=== PATIENT | female | born 1975 | race Caucasian/White ===

== ENCOUNTER 2017-09-16 16:28 | Emergency (ER) | payer SELFPAY ==
[2017-09-16] MEDS ORDERED: Sodium Chloride 0.9% 1,000 ML IV SCH ×2 (17:30→18:30)
--- NOTE | 2017-09-16 17:45 | EDM.PDOC ---
<Parvin Archibald - Last Filed: 09/16/17 17:39> ED HPI GENERAL MEDICAL PROBLEM - General Chief Complaint: Neuro Symptoms/Deficits Stated Complaint: SEIZURE ON Time Seen by Provider: 09/16/17 17:39 Source of Information: Reports: Patient, Family History Limitations: Reports: No Limitations - History of Present Illness INITIAL COMMENTS - FREE TEXT/NARRATIVE: Pt had a very extended seizure on wednesday and she is not recovering from this seizure. Her appetite is down. She is not drinking fluids. She can,t focus. Onset: Other (pt had the seizure on wednesday. ) Duration: Hour(s):, Other (pt arrived with fatique. She has pressure in the head. ) Location: Reports: Head Quality: Reports: Ache Severity: Mild Associated Symptoms: Reports: Loss of Appetite, Malaise, Other (having trouble thinking. 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 Frozen section Neurological History: Reports: Brain Injury, Migraines, Seizure Oncologic (Cancer) History: Reports: Ovarian - Infectious Disease History Infectious Disease History: Reports: Chicken Pox - Past Surgical History HEENT Surgical History: Reports: Myringotomy w Tube(s) Social & Family History - Tobacco Use Smoking Status *Q: Current Every Day Smoker Years of Tobacco use: 34 Packs/Tins Daily: 1 Used Tobacco, but Quit: No Second Hand Smoke Exposure: Yes - Caffeine Use Caffeine Use: Reports: Soda - Alcohol Use Days Per Week of Alcohol Use: 0 - Recreational Drug Use Recreational Drug Use: No ED ROS GENERAL - Review of Systems Review Of Systems: See Below Constitutional: Reports: No Symptoms HEENT: Reports: No Symptoms Respiratory: Reports: No Symptoms Cardiovascular: Reports: No Symptoms Endocrine: Reports: No Symptoms GI/Abdominal: Reports: Other (pt is not eating or drinking well. ) : Reports: No Symptoms Musculoskeletal: Reports: No Symptoms Skin: Reports: No Symptoms ED EXAM, NEURO - Physical Exam Exam: See Below Text/Narrative:: pt does look fatiqued. and she feels that she can,t recover from her last extended seizure. Exam Limited By: No Limitations General Appearance: Alert, Mild Distress, Other (pupils equal and reactive. ) Ears: Normal TMs Nose: Normal Inspection Throat/Mouth: Normal Inspection Head Exam: Atraumatic Neck: Normal Inspection Respiratory/Chest: No Respiratory Distress Cardiovascular: Regular Rate, Rhythm GI/Abdominal: Soft, Non-Tender (Female) Exam: Deferred Rectal (Female) Exam: Deferred Neurological: Alert, Oriented x 3 Back Exam: Normal Inspection Extremities: Normal Inspection Psychiatric: Anxious Course - Vital Signs Last Recorded V/S: Last Vital Signs Temp 96.8 F 09/16/17 18:59 Pulse 76 09/16/17 18:59 Resp 16 09/16/17 18:59 BP 116/69 09/16/17 18:59 Pulse Ox 99 09/16/17 18:59 - Orders/Labs/Meds Orders: Active Orders 24 hr Category Date Time Status Head wo Cont [CT] Stat Exams 09/16/17 17:36 Taken Sodium Chloride 0.9% [Normal Saline] 1,000 ml Med 09/16/17 17:30 Active IV ASDIRECTED Medication Orders Sodium Chloride (Normal Saline) 1,000 mls @ 999 mls/hr IV ASDIRECTED ELISEO Last Admin: 09/16/17 18:02 Dose: 999 mls/hr Labs: Laboratory Tests 09/16/17 09/16/17 09/16/17 Range/Units 17:24 17:24 17:24 WBC 14.2 H (4.5-11.0) K/uL RBC 4.29 (3.30-5.50) M/uL Hgb 13.4 (12.0-15.0) g/dL Hct 39.9 (36.0-48.0) % MCV 93 (80-98) fL MCH 31 (27-31) pg MCHC 34 (32-36) % Plt Count 264 (150-400) K/uL Neut % (Auto) 61 (36-66) % Lymph % (Auto) 25 (24-44) % [place] % (Auto) 8 H (2-6) % Eos % (Auto) 6 H (2-4) % Baso % (Auto) 0 (0-1) % Sodium 144 (140-148) mmol/L Potassium 4.3 (3.6-5.2) mmol/L Chloride 110 H (100-108) mmol/L Carbon Dioxide 27 (21-32) mmol/L Anion Gap 11.3 (5.0-14.0) mmol/L BUN 17 (7-18) mg/dL Creatinine 0.8 (0.6-1.0) mg/dL Est Cr Clr Drug Dosing 84.88 mL/min Estimated GFR (MDRD) > 60 (>60) Glucose 86 (74-106) mg/dL Calcium 8.5 (8.5-10.1) mg/dL Total Bilirubin 0.2 (0.2-1.0) mg/dL AST 19 (15-37) U/L ALT 31 (12-78) U/L Alkaline Phosphatase 76 (46-116) U/L Total Protein 6.6 (6.4-8.2) g/dL Albumin 3.1 L (3.4-5.0) g/dL Globulin 3.5 (2.3-3.5) g/dL Albumin/Globulin Ratio 0.9 L (1.2-2.2) Urine Color Urine Appearance Urine pH (4.5-8.0) Ur Specific [place] (1.008-1.030) Urine Protein (NEGATIVE) mg/dL Urine Glucose (UA) (NEGATIVE) mg/dL Urine Ketones (NEGATIVE) mg/dL Urine Occult Blood (NEGATIVE) Urine Nitrite (NEGATIVE) Urine Bilirubin (NEGATIVE) Urine Urobilinogen (NORMAL) mg/dL Ur Leukocyte Esterase (NEGATIVE) Urine RBC (0-5) Urine WBC (0-5) Ur Epithelial Cells Amorphous Sediment Urine Bacteria Urine Mucus Phenytoin 9.6 L (10.0-20.0) ug/mL Valproic Acid 48.9 L (50.0-100.0) ug/mL 09/16/17 Range/Units 17:43 WBC (4.5-11.0) K/uL RBC (3.30-5.50) M/uL Hgb (12.0-15.0) g/dL Hct (36.0-48.0) % MCV (80-98) fL MCH (27-31) pg MCHC (32-36) % Plt Count (150-400) K/uL Neut % (Auto) (36-66) % Lymph % (Auto) (24-44) % [place] % (Auto) (2-6) % Eos % (Auto) (2-4) % Baso % (Auto) (0-1) % Sodium (140-148) mmol/L Potassium (3.6-5.2) mmol/L Chloride (100-108) mmol/L Carbon Dioxide (21-32) mmol/L Anion Gap (5.0-14.0) mmol/L BUN (7-18) mg/dL Creatinine (0.6-1.0) mg/dL Est Cr Clr Drug Dosing mL/min Estimated GFR (MDRD) (>60) Glucose (74-106) mg/dL Calcium (8.5-10.1) mg/dL Total Bilirubin (0.2-1.0) mg/dL AST (15-37) U/L ALT (12-78) U/L Alkaline Phosphatase (46-116) U/L Total Protein (6.4-8.2) g/dL Albumin (3.4-5.0) g/dL Globulin (2.3-3.5) g/dL Albumin/Globulin Ratio (1.2-2.2) Urine Color Yellow Urine Appearance Slightly cloudy Urine pH 6.0 (4.5-8.0) Ur Specific [place] 1.020 (1.008-1.030) Urine Protein Negative (NEGATIVE) mg/dL Urine Glucose (UA) Normal (NEGATIVE) mg/dL Urine Ketones Negative (NEGATIVE) mg/dL Urine Occult Blood Negative (NEGATIVE) Urine Nitrite Negative (NEGATIVE) Urine Bilirubin Negative (NEGATIVE) Urine Urobilinogen 1 (NORMAL) mg/dL Ur Leukocyte Esterase Moderate (NEGATIVE) Urine RBC 0-5 (0-5) Urine WBC 0-5 (0-5) Ur Epithelial Cells Many Amorphous Sediment Not seen Urine Bacteria Rare Urine Mucus Not seen Phenytoin (10.0-20.0) ug/mL Valproic Acid (50.0-100.0) ug/mL Meds: Medications Generic Name Dose Route Start Last Admin Trade Name Freq PRN Reason Stop Dose Admin Sodium Chloride 1,000 mls @ 999 mls/hr 09/16/17 17:30 09/16/17 18:02 Normal Saline IV 999 mls/hr ASDIRECTED ELISEO Administration Discontinued Medications Generic Name Dose Route Start Last Admin Trade Name Arpita PRN Reason Stop Dose Admin Sodium Chloride 1,000 mls @ 999 mls/hr 09/16/17 18:30 Normal Saline IV ASDIRECTED ELISEO Departure - Departure Disposition: Home, Self-Care 01 Clinical Impression: Seizure - Discharge Information Referrals: Kurt Long MD [Primary Care Provider] - Forms: ED Department Discharge Additional Instructions: Recommend taking 4 tablets of any: This evening from your new pill bottle then 4 tablets in the morning followed by 3 tablets in the evening tomorrow. Recommend continuing this regimen until following up with Dr. oLng on Wednesday at which time he will recheck your levels, call return to the emergency department worsening of symptoms <OfficerFarooq - Last Filed: 09/16/17 19:18> Departure - Departure Time of Disposition: 19:17 Condition: Good - Assessment/Plan Plan: Assessment Acuity = acute Site and laterality = seizure complicated patient with known seizure disorder Etiology = probably related to recent change in medication Manifestations = none Location of injury = Home Lab values = WBC elevated 14.1 consistent leukocytosis, phenytoin level 9.6 subtherapeutic valproic acid level 48.9 also subtherapeutic Plan Did discuss options she does have 2 pill bottles 1 old medication of which she was stable on and in the new medication which she is recently started she plan is to increase her phenytoin level from the new pill bottle she is going to go for tablets tonight then 4 tablets in the morning 3 tablets in the evening and she'll continue this regimen until she can follow-up on Wednesday with her primary care provider at which time she'll have a recheck of levels call return to the emergency department worsening of symptoms This note was dictated using [employer] voice recognition software please call with any questions on syntax or esperanza.
== END 2017-09-16 19:33 | disposition home or self-care (01) ==
LOC: JP.ED 16:28
DX: R56.9 Unspecified convulsions (principal); F17.210 Nicotine dependence, cigarettes, uncomplicated; Z79.899 Other long term (current) drug therapy
CPT/HCPCS: 36415; 70450; 80053; 80164; 80185; 81001; 85025; 96360; 99284; J7040

== ENCOUNTER 2017-12-31 13:41 | Emergency (ER) | payer SELFPAY ==
--- NOTE | 2017-12-31 14:22 | EDM.PDOC ---
ED HPI GENERAL MEDICAL PROBLEM - General Chief Complaint: Gastrointestinal Problem Stated Complaint: SEVERE STOMACH PAIN Time Seen by Provider: 12/31/17 14:10 Source of Information: Reports: Patient History Limitations: Reports: No Limitations - History of Present Illness INITIAL COMMENTS - FREE TEXT/NARRATIVE: Cristela is an otherwise healthy 42 year old female who presents to the ED today with c/o abdominal pain that started while she was at work this morning. Patient also complains of lower pelvic cramping but attributes this to her menstrual cycle which should start tomorrow. Patient reports her abdominal pain was relived with defecation. Patient is concerned as she was on the toilet for nearly an hour passing a large amount of formed stool followed loose stool and then noted BRB in toilet. Patient has had no bleeding since. She denies any history of abdominal problems or rectal bleeding in the past. Patient denies any fever/nausea/vomiting. 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 Frozen section Neurological History: Reports: Brain Injury, Migraines, Seizure Oncologic (Cancer) History: Reports: Ovarian - Infectious Disease History Infectious Disease History: Reports: Chicken Pox - Past Surgical History HEENT Surgical History: Reports: Myringotomy w Tube(s) Social & Family History - Tobacco Use Smoking Status *Q: Current Every Day Smoker Years of Tobacco use: 33 Packs/Tins Daily: 1 Second Hand Smoke Exposure: Yes - Caffeine Use Caffeine Use: Reports: None - Recreational Drug Use Recreational Drug Use: No ED ROS GENERAL - Review of Systems Review Of Systems: ROS reveals no pertinent complaints other than HPI. ED EXAM, GI/ABD - Physical Exam Exam: See Below Exam Limited By: No Limitations General Appearance: Alert, WD/WN, No Apparent Distress Throat/Mouth: Normal Oropharynx Head: Atraumatic Respiratory/Chest: No Respiratory Distress, Lungs Clear, Normal Breath Sounds Cardiovascular: Regular Rate, Rhythm, No Murmur. No: Irregularly Irregular GI/Abdominal Exam: Normal Bowel Sounds, Non-Tender, No Organomegaly, No Distention Rectal (Female) Exam: Normal Exam, Normal Rectal Tone. No: Black Stool, Bloody Stool, Perirectal Abscess, Tenderness Back Exam: Normal Inspection Extremities: Normal Inspection Neurological: Alert, Oriented, CN II-XII Intact Psychiatric: Normal Affect Skin Exam: Warm, Dry, Intact Lymphatic: No Adenopathy Course - Vital Signs Last Recorded V/S: Last Vital Signs Temp 35.7 C 12/31/17 14:00 Pulse 88 12/31/17 14:00 Resp 16 12/31/17 14:00 BP 144/89 H 12/31/17 14:00 Pulse Ox 100 12/31/17 14:00 Cristela is otherwise healthy 42-year-old female who presents to the emergency Department today with lower abdominal pain and rectal bleeding. Please refer to history of present illness and focused exam. Occult stool is positive, patient did pass a small amount of nida blood while in the department, followed by brown stool with no nida blood noted. Guaiac is positive. CBC returns with a reassuring hemoglobin of 14.3, white count return elevated at 17 with a left shift. CMP returns of sodium 134, anion gap of 15.2 and a calcium of 8.4. I did discuss with patient her elevated white count and did recommend a CT scan of her abdomen. This was ordered and IV was attempted but was unsuccessful, patient now refuses any further IV attempts but is agreeable to the CT scan, I did discuss with patient that this is not going to be optimal without contrast but should rule out anything significant at this time. We'll wait for CT scan results. 1630-CT scan is negative for any intra-abdominal process, there is a 2.8 x 2.8 cm structure within the right adnexa which patient's does associate with known ovarian cyst. Patient has no significant unilateral pelvic pain to be concerning for torsion or other acute pelvic process and she feels this is likely secondary to the beginning of her menses. For now I will send patient home with ongoing monitoring, she was instructed to monitor her stools, follow-up with primary care next week and if bleeding persists or gets worse rectally she certainly can return to the emergency department but I would like her to follow-up with primary care next week for reevaluation. I did discuss with patient that if this persists she would likely benefit from a colonoscopy. For now patient's hemoglobin is stable and she has had no further leading with the last 3 Vollman she's had here, it is likely that she has a enteritis or gastroenteritis but should leading to her symptoms today. Patient was instructed to stay well-hydrated, she can take Tylenol for pain, warm pack for her cramps. Reasons to return to the emergency department were discussed in detail, patient and her are agreeable and patient was discharged in stable condition. - Orders/Labs/Meds Orders: Active Orders 24 hr Category Date Time Status Peripheral IV Care [RC] . DIRECTED Care 12/31/17 14:46 Active Abdomen Pelvis wo Cont [CT] Stat Exams 12/31/17 15:08 Taken Sodium Chloride 0.9% [Normal Saline] 1,000 ml Med 12/31/17 15:00 Active IV ASDIRECTED Sodium Chloride 0.9% [Saline Flush] Med 12/31/17 14:46 Active 10 ml FLUSH ASDIRECTED PRN Peripheral IV Insertion Adult [OM.PC] Routine Oth 12/31/17 14:46 Ordered Medication Orders Sodium Chloride (Normal Saline) 1,000 mls @ 999 mls/hr IV ASDIRECTED ELISEO Sodium Chloride (Saline Flush) 10 ml FLUSH ASDIRECTED PRN PRN Reason: Keep Vein Open Labs: Laboratory Tests 12/31/17 12/31/17 12/31/17 Range/Units 14:26 14:26 14:26 WBC 17.0 H (4.5-11.0) K/uL RBC 4.50 (3.30-5.50) M/uL Hgb 14.3 (12.0-15.0) g/dL Hct 41.5 (36.0-48.0) % MCV 92 (80-98) fL MCH 32 H (27-31) pg MCHC 35 (32-36) % Plt Count 268 (150-400) K/uL Neut % (Auto) 79 H (36-66) % Lymph % (Auto) 12 L (24-44) % [place] % (Auto) 8 H (2-6) % Eos % (Auto) 1 L (2-4) % Baso % (Auto) 0 (0-1) % Sodium 134 L (140-148) mmol/L Potassium 4.2 (3.6-5.2) mmol/L Chloride 101 (100-108) mmol/L Carbon Dioxide 22 (21-32) mmol/L Anion Gap 15.2 H (5.0-14.0) mmol/L BUN 17 (7-18) mg/dL Creatinine 0.8 (0.6-1.0) mg/dL Est Cr Clr Drug Dosing TNP Estimated GFR (MDRD) > 60 (>60) Glucose 96 (74-106) mg/dL Calcium 8.4 L (8.5-10.1) mg/dL Total Bilirubin 0.4 D (0.2-1.0) mg/dL AST 24 (15-37) U/L ALT 38 (12-78) U/L Alkaline Phosphatase 84 (46-116) U/L Total Protein 7.2 (6.4-8.2) g/dL Albumin 3.3 L (3.4-5.0) g/dL Globulin 3.9 H (2.3-3.5) g/dL Albumin/Globulin Ratio 0.9 L (1.2-2.2) HCG, Qual Phenytoin 13.3 (10.0-20.0) ug/mL 12/31/17 Range/Units 14:47 WBC (4.5-11.0) K/uL RBC (3.30-5.50) M/uL Hgb (12.0-15.0) g/dL Hct (36.0-48.0) % MCV (80-98) fL MCH (27-31) pg MCHC (32-36) % Plt Count (150-400) K/uL Neut % (Auto) (36-66) % Lymph % (Auto) (24-44) % [place] % (Auto) (2-6) % Eos % (Auto) (2-4) % Baso % (Auto) (0-1) % Sodium (140-148) mmol/L Potassium (3.6-5.2) mmol/L Chloride (100-108) mmol/L Carbon Dioxide (21-32) mmol/L Anion Gap (5.0-14.0) mmol/L BUN (7-18) mg/dL Creatinine (0.6-1.0) mg/dL Est Cr Clr Drug Dosing Estimated GFR (MDRD) (>60) Glucose (74-106) mg/dL Calcium (8.5-10.1) mg/dL Total Bilirubin (0.2-1.0) mg/dL AST (15-37) U/L ALT (12-78) U/L Alkaline Phosphatase (46-116) U/L Total Protein (6.4-8.2) g/dL Albumin (3.4-5.0) g/dL Globulin (2.3-3.5) g/dL Albumin/Globulin Ratio (1.2-2.2) HCG, Qual Negative Phenytoin (10.0-20.0) ug/mL Meds: Medications Generic Name Dose Route Start Last Admin Trade Name Freq PRN Reason Stop Dose Admin Sodium Chloride 1,000 mls @ 999 mls/hr 12/31/17 15:00 Normal Saline IV ASDIRECTED ELISEO Sodium Chloride 10 ml 12/31/17 14:46 Saline Flush FLUSH ASDIRECTED PRN Keep Vein Open Departure - Departure Time of Disposition: 16:55 Disposition: Home, Self-Care 01 Condition: Good Clinical Impression: Pelvic pain, Blood in stool, Enteritis - Discharge Information Instructions: Pelvic Pain, Female, [id number], Rectal Bleeding, [id number] Referrals: Kurt Long MD [Primary Care Provider] - Forms: ED Department Discharge Additional Instructions: Follow up in clinic with your primary care provider next week. Return to the ED any worsening symptoms/concerns. Tylenol for pain. Warm pack to pelvis for pain. Make sure you are staying well hydrated. - My Orders Last 24 Hours: My Active Orders 12/31/17 14:46 Peripheral IV Care [RC] . DIRECTED Sodium Chloride 0.9% [Saline Flush] 10 ml FLUSH ASDIRECTED PRN Peripheral IV Insertion Adult [OM.PC] Routine 12/31/17 15:00 Sodium Chloride 0.9% [Normal Saline] 1,000 ml IV ASDIRECTED 12/31/17 15:08 Abdomen Pelvis wo Cont [CT] Stat - Assessment/Plan Last 24 Hours: My Active Orders 12/31/17 14:46 Peripheral IV Care [RC] . DIRECTED Sodium Chloride 0.9% [Saline Flush] 10 ml FLUSH ASDIRECTED PRN Peripheral IV Insertion Adult [OM.PC] Routine 12/31/17 15:00 Sodium Chloride 0.9% [Normal Saline] 1,000 ml IV ASDIRECTED 12/31/17 15:08 Abdomen Pelvis wo Cont [CT] Stat
[2017-12-31] MEDS ORDERED: Sodium Chloride 0.9% 10 ML Syringe FLUSH PRN (14:46)
[2017-12-31] MEDS ORDERED: Sodium Chloride 0.9% 1,000 ML IV SCH (15:00)
== END 2017-12-31 16:44 | disposition home or self-care (01) ==
LOC: JP.ED 13:41
DX: K52.9 Noninfective gastroenteritis and colitis, unspecified (principal); F17.210 Nicotine dependence, cigarettes, uncomplicated; R19.5 Other fecal abnormalities; Z79.899 Other long term (current) drug therapy
CPT/HCPCS: 36415; 74176; 80053; 80185; 82272; 84703; 85025; 99283; 99284-25

== ENCOUNTER 2019-02-09 15:17 | Emergency (ER) | payer OTHER ==
--- NOTE | 2019-02-09 15:58 | EDM.PDOC ---
ED HPI GENERAL MEDICAL PROBLEM - General Chief Complaint: Allergic Reaction Stated Complaint: ALLIGERIC RECATION Time Seen by Provider: 02/09/19 15:40 Source of Information: Reports: Patient History Limitations: Reports: No Limitations - History of Present Illness INITIAL COMMENTS - FREE TEXT/NARRATIVE: 44-year-old female who was placed on Augmentin 3 days ago for "sinusitis" started developing small scattered hive like lesions 5-6 hours ago. She has diffuse itching but no oral symptoms or wheezing. Onset: Gradual (Started gradually 4-5 hours ago, worsening) Generalized Pain Score (Numeric/FACES): 10 - Related Data Allergies Allergy/AdvReac Type Severity Reaction Status Date / Time adhesive Allergy Rash Verified 02/09/19 15:32 peanut Allergy Rash Verified 02/09/19 15:32 Home Meds: Home Meds Divalproex Sodium [Depakote] 1,000 mg PO BID 09/16/17 [History] Phenytoin Sodium Extended [Dilantin] 300 mg PO BID 09/16/17 [History] Albuterol Sulfate [Proair Respiclick] 90 mcg IH Q4H PRN 02/09/19 [History] Amoxicillin 875 mg PO BID 02/09/19 [History] Past Medical History HEENT History: Reports: Impaired Vision Respiratory History: Reports: 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 Neurological History: Reports: Brain Injury, Migraines, Seizure Oncologic (Cancer) History: Reports: Ovarian - Infectious Disease History Infectious Disease History: Reports: Chicken Pox - Past Surgical History HEENT Surgical History: Reports: Myringotomy w Tube(s) Social & Family History - Tobacco Use Smoking Status *Q: Current Every Day Smoker Years of Tobacco use: 35 Packs/Tins Daily: 1 Used Tobacco, but Quit: No Second Hand Smoke Exposure: Yes - Caffeine Use Caffeine Use: Reports: None - Alcohol Use Days Per Week of Alcohol Use: 0 - Recreational Drug Use Recreational Drug Use: No ED ROS ALLERGIC REACTION - Review of Systems Review Of Systems: See Below Constitutional: Reports: Malaise. Denies: Fever, Chills HEENT: Reports: Sinus Problem Respiratory: Denies: Shortness of Breath (Congestion), Cough Cardiovascular: Denies: Chest Pain GI/Abdominal: Denies: Abdominal Pain, Nausea, Vomiting Skin: Reports: Urticaria ED EXAM GENERAL NO PERIP PULSE - Physical Exam Exam: See Below Exam Limited By: No Limitations General Appearance: Alert, No Apparent Distress, Other (Looks uncomfortable due to the itching) Throat/Mouth: Normal Inspection Head: Atraumatic Respiratory/Chest: No Respiratory Distress, Lungs Clear Skin Exam: Other (Patient has fairly widespread erythematous papular lesions on the trunk and extremities, some several centimeters wide that nydia.) Course - Vital Signs Last Recorded V/S: Last Vital Signs Temp 99.1 F 02/09/19 15:39 Pulse 84 02/09/19 15:39 Resp 18 02/09/19 15:39 BP 131/80 02/09/19 15:39 Pulse Ox 96 02/09/19 15:39 - Re-Assessments/Exams Free Text/Narrative Re-Assessment/Exam: 02/09/19 15:57 She appears to be having some type of an allergic reaction likely to the Augmentin. This will be stopped, she'll be placed on Zithromax along with a Medrol Dosepak and Benadryl. Recheck in 24-48 hours if not improving. Departure - Departure Time of Disposition: 16:09 Disposition: Home, Self-Care 01 Clinical Impression: Urticaria - Discharge Information Instructions: [place], [id number] Referrals: PCP,None [Primary Care Provider] - Forms: ED Department Discharge Care Plan Goals: Stop Augmentin, start Zithromax and take Medrol Dosepak and Benadryl for symptoms. Consider rechecking in 24-48 hours if not starting to improve.
== END 2019-02-09 16:09 | disposition home or self-care (01) ==
LOC: JP.ED 15:17
DX: L50.9 Urticaria, unspecified (principal); J45.909 Unspecified asthma, uncomplicated; F17.210 Nicotine dependence, cigarettes, uncomplicated; Z91.010 Allergy to peanuts
CPT/HCPCS: 99283

== ENCOUNTER 2019-05-23 11:16 | Emergency (ER) | payer OTHER ==
[2019-05-23] MEDS ORDERED: Sodium Chloride 0.9% 1,000 ML IV SCH (14:30)
[2019-05-23] MEDS ORDERED: Meclizine 25 MG Tab PO ONE (14:30)
[2019-05-23] MEDS ORDERED: Ondansetron 4 MG/2 ML SDV IVPUSH ONE (14:30)
--- NOTE | 2019-05-23 14:31 | EDM.PDOC ---
ED HPI GENERAL MEDICAL PROBLEM - General Chief Complaint: Gastrointestinal Problem Stated Complaint: DIZZINESS,VOMITING Time Seen by Provider: 05/23/19 14:31 Source of Information: Reports: Patient History Limitations: Reports: No Limitations - History of Present Illness INITIAL COMMENTS - FREE TEXT/NARRATIVE: pt had a episode which hit her vry suddenly where she had marked vertigo, headache and felt very shakey. She has had problems like that in the past when her dilantin level was high. She has not had seizure activity for 2 years. She is having alot of stress as she is now going through a divorce. Onset: Today, Sudden Duration: Hour(s): Location: Reports: Generalized Associated Symptoms: Reports: No Other Symptoms, Weakness, Other (shakey) - Related Data Allergies Allergy/AdvReac Type Severity Reaction Status Date / Time peanut Allergy Severe Rash Verified 05/23/19 13:52 adhesive Allergy Intermediate Rash Verified 05/23/19 13:52 amoxicillin Allergy Intermediate Rash Verified 05/23/19 13:53 Home Meds: Home Meds Divalproex Sodium [Depakote] 1,000 mg PO BID 09/16/17 [History] Phenytoin Sodium Extended [Dilantin] 300 mg PO BID 09/16/17 [History] Albuterol Sulfate [Proair Respiclick] 90 mcg IH Q4H PRN 02/09/19 [History] Past Medical History HEENT History: Reports: Impaired Vision Respiratory History: Reports: Asthma 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 Frozen section Neurological History: Reports: Brain Injury, Migraines, Seizure Oncologic (Cancer) History: Reports: Ovarian - Infectious Disease History Infectious Disease History: Reports: Chicken Pox - Past Surgical History HEENT Surgical History: Reports: Myringotomy w Tube(s) Social & Family History - Tobacco Use Smoking Status *Q: Current Every Day Smoker Years of Tobacco use: 30 Packs/Tins Daily: 1 - Caffeine Use Caffeine Use: Reports: None - Recreational Drug Use Recreational Drug Use: No ED ROS GENERAL - Review of Systems Review Of Systems: See Below Constitutional: Reports: No Symptoms HEENT: Reports: No Symptoms Respiratory: Reports: No Symptoms Cardiovascular: Reports: No Symptoms Endocrine: Reports: No Symptoms GI/Abdominal: Reports: No Symptoms : Reports: No Symptoms Musculoskeletal: Reports: Other (muscle weakness) Skin: Reports: No Symptoms Neurological: Reports: Headache, Other (vertigo) Psychiatric: Reports: Anxiety ED EXAM, GI/ABD - Physical Exam Exam: See Below Text/Narrative:: pt arrived feeling very anxious and having sig vertigo. She states this did come on suddenly. She has not had a recent depakote and dilantin level. Exam Limited By: No Limitations General Appearance: Alert, Anxious, Mild Distress, Other (pupils are equal and reactive. ) Ears: Normal TMs Nose: Normal Inspection Throat/Mouth: Normal Inspection Head: Atraumatic Neck: Normal Inspection Respiratory/Chest: No Respiratory Distress Cardiovascular: Regular Rate, Rhythm GI/Abdominal Exam: Soft, Non-Tender (Female) Exam: Deferred Rectal (Female) Exam: Deferred Back Exam: Normal Inspection Extremities: Normal Inspection Neurological: Alert, Oriented, Normal Cognition, Other (pt is having sig vertigo when her head is turned. ) Course - Vital Signs Last Recorded V/S: Last Vital Signs Temp 37.1 C 05/23/19 13:56 Pulse 77 05/23/19 15:55 Resp 16 05/23/19 15:55 BP 93/58 L 05/23/19 15:55 Pulse Ox 99 05/23/19 15:55 - Orders/Labs/Meds Labs: Laboratory Tests 05/23/19 05/23/19 05/23/19 Range/Units 14:30 14:30 14:30 WBC 11.5 H (4.5-11.0) K/uL RBC 4.65 (3.30-5.50) M/uL Hgb 15.0 (12.0-15.0) g/dL Hct 44.6 (36.0-48.0) % MCV 96 (80-98) fL MCH 32 H (27-31) pg MCHC 34 (32-36) % Plt Count 252 (150-400) K/uL Neut % (Auto) 53 (36-66) % Lymph % (Auto) 35 (24-44) % Waller % (Auto) 9 H (2-6) % Eos % (Auto) 3 (2-4) % Baso % (Auto) 0 (0-1) % Sodium 138 L (140-148) mmol/L Potassium 4.7 (3.6-5.2) mmol/L Chloride 102 (100-108) mmol/L Carbon Dioxide 27 (21-32) mmol/L Anion Gap 13.7 (5.0-14.0) mmol/L BUN 13 (7-18) mg/dL Creatinine 0.8 (0.6-1.0) mg/dL Est Cr Clr Drug Dosing 83.13 mL/min Estimated GFR (MDRD) > 60 (>60) Glucose 83 (74-106) mg/dL Calcium 8.9 (8.5-10.1) mg/dL Total Bilirubin 0.3 (0.2-1.0) mg/dL AST 15 (15-37) U/L ALT 20 (12-78) U/L Alkaline Phosphatase 79 (46-116) U/L Total Protein 7.2 (6.4-8.2) g/dL Albumin 3.3 L (3.4-5.0) g/dL Globulin 3.9 H (2.3-3.5) g/dL Albumin/Globulin Ratio 0.9 L (1.2-2.2) Urine Color (YELLOW) Urine Appearance (CLEAR) Urine pH (5.0-8.0) Ur Specific [place] (1.008-1.030) Urine Protein (NEGATIVE) mg/dL Urine Glucose (UA) (NEGATIVE) mg/dL Urine Ketones (NEGATIVE) mg/dL Urine Occult Blood (NEGATIVE) Urine Nitrite (NEGATIVE) Urine Bilirubin (NEGATIVE) Urine Urobilinogen (0.2-1.0) EU/dL Ur Leukocyte Esterase (NEGATIVE) Urine RBC (0-5) Urine WBC (0-5) Ur Epithelial Cells Amorphous Sediment Urine Bacteria Urine Mucus Phenytoin 28.4 H (10.0-20.0) ug/mL Valproic Acid (50.0-100.0) ug/mL 05/23/19 05/23/19 Range/Units 14:30 14:33 WBC (4.5-11.0) K/uL RBC (3.30-5.50) M/uL Hgb (12.0-15.0) g/dL Hct (36.0-48.0) % MCV (80-98) fL MCH (27-31) pg MCHC (32-36) % Plt Count (150-400) K/uL Neut % (Auto) (36-66) % Lymph % (Auto) (24-44) % Waller % (Auto) (2-6) % Eos % (Auto) (2-4) % Baso % (Auto) (0-1) % Sodium (140-148) mmol/L Potassium (3.6-5.2) mmol/L Chloride (100-108) mmol/L Carbon Dioxide (21-32) mmol/L Anion Gap (5.0-14.0) mmol/L BUN (7-18) mg/dL Creatinine (0.6-1.0) mg/dL Est Cr Clr Drug Dosing mL/min Estimated GFR (MDRD) (>60) Glucose (74-106) mg/dL Calcium (8.5-10.1) mg/dL Total Bilirubin (0.2-1.0) mg/dL AST (15-37) U/L ALT (12-78) U/L Alkaline Phosphatase (46-116) U/L Total Protein (6.4-8.2) g/dL Albumin (3.4-5.0) g/dL Globulin (2.3-3.5) g/dL Albumin/Globulin Ratio (1.2-2.2) Urine Color Yellow (YELLOW) Urine Appearance Slightly cloudy A (CLEAR) Urine pH 6.0 (5.0-8.0) Ur Specific [place] 1.020 (1.008-1.030) Urine Protein Negative (NEGATIVE) mg/dL Urine Glucose (UA) Negative (NEGATIVE) mg/dL Urine Ketones Trace H (NEGATIVE) mg/dL Urine Occult Blood Negative (NEGATIVE) Urine Nitrite Negative (NEGATIVE) Urine Bilirubin Negative (NEGATIVE) Urine Urobilinogen 0.2 (0.2-1.0) EU/dL Ur Leukocyte Esterase Negative (NEGATIVE) Urine RBC 0-5 (0-5) Urine WBC 0-5 (0-5) Ur Epithelial Cells Few Amorphous Sediment Not seen Urine Bacteria Many Urine Mucus Many Phenytoin (10.0-20.0) ug/mL Valproic Acid 69.0 (50.0-100.0) ug/mL Meds: Medications Discontinued Medications Generic Name Dose Route Start Last Admin Trade Name Freq PRN Reason Stop Dose Admin Sodium Chloride 1,000 mls @ 999 mls/hr 05/23/19 14:30 Normal Saline IV ASDIRECTED ELISEO Meclizine HCl 25 mg 05/23/19 14:30 05/23/19 14:44 Antivert PO 05/23/19 14:31 25 mg ONETIME ONE Administration Ondansetron HCl 4 mg 05/23/19 14:30 05/23/19 14:57 Zofran IVPUSH 05/23/19 14:31 Not Given ONETIME ONE Ondansetron HCl 4 mg 05/23/19 14:43 05/23/19 14:56 Zofran Odt PO 05/23/19 14:44 4 mg ONETIME ONE Administration - Re-Assessments/Exams Free Text/Narrative Re-Assessment/Exam: 05/24/19 07:24 pt was given zoforan 4 mg subling, antivert 25 mg . She was able to drink fluids. She had a cat scan of the head that was neg. Her labs were good except the dilantin level was high. Departure - Departure Time of Disposition: 16:15 Disposition: Home, Self-Care 01 Condition: Fair Clinical Impression: Vertigo, Elevated Dilantin level - Discharge Information Instructions: Vertigo, Dizziness Referrals: Kurt Long MD [Primary Care Provider] - Forms: ED Department Discharge Care Plan Goals: push fluids, antivert 25 mg tid today for vertigo. no dilantin tonight then 200mg in am and 300mg hs, appt with Dr Long in 1 week to have level of dilantin rechecked.
[2019-05-23] MEDS ORDERED: Ondansetron 4 MG Tab.DIS PO ONE (14:43)
--- NOTE | 2019-05-23 15:11 | CRLCT ---
INDICATION: vertigo acute onset CT HEAD WITHOUT CONTRAST TECHNIQUE: Multiple axial CT images were performed through the head without intravenous contrast administration. COMPARISON: 06/28/[address] FINDINGS: No acute intracranial hemorrhage is identified. No extra-axial collections are evident and there is no mass effect or midline shift. Ventricles are normal in size and configuration. Brain parenchyma appears normal with unremarkable see-white differentiation. Osseous structures are within normal limits and no fractures are seen. Included portions of the paranasal sinuses and mastoid air cells are normally aerated except for a moderate sized right mastoid effusion which appears new or increased from before. IMPRESSION: 1. No intracranial abnormality identified. 2. Right mastoid effusion. NAOMI HYATT MD [facility] [employer] Dictated by Stanley Hyatt MD @ 05/23/2019 3:09:19 PM Dictated by: Stanley Hyatt MD @ 05/23/2019 15:09:57 (Electronically Signed)
== END 2019-05-23 16:28 | disposition home or self-care (01) ==
LOC: JP.ED 11:16
DX: R42 Dizziness and giddiness (principal); R89.2 Abnormal level of other drugs, medicaments and biological substances in specimens from other organs, systems and tissues; F17.210 Nicotine dependence, cigarettes, uncomplicated; Z91.010 Allergy to peanuts; Z88.0 Allergy status to penicillin; Z91.048 Other nonmedicinal substance allergy status
CPT/HCPCS: 36415; 70450; 80053; 80164; 80185; 81001; 85025; 99284-25; A9270-GY

== ENCOUNTER 2020-07-16 06:36 | Day surgery (SDC) | payer OTHER ==
[2020-07-16] MEDS ORDERED: Propofol 200 MG/20 ML SDV ONE (07:09)
[2020-07-16] MEDS ORDERED: Midazolam 1 MG/ML 2 ML SDV ONE (07:09)
[2020-07-16] MEDS ORDERED: fentaNYL 100 MCG/2 ML SDV ONE (07:09)
[2020-07-16] MEDS ORDERED: Dextrose 5%-Lactated Ringers 1,000 ML IV SCH (07:30)
[2020-07-16] MEDS ORDERED: Glycopyrrolate 0.2 MG/ML 2 ML SDV IVPUSH ONE (07:45)
--- NOTE | 2020-07-24 12:08 | OR ---
DATE OF PROCEDURE: 07/16/2020 SURGEON: Sherwin Paula MD PREOPERATIVE DIAGNOSES: 1. Epigastric pain and nausea with early satiety. 2. History of gastroesophageal reflux disease. 3. Chronic constipation with recent episodes of bright red blood per rectum. POSTOPERATIVE DIAGNOSES: 1. Upper gastrointestnal endoscopy showing: a. A. Small hiatal hernia with moderately active gastroesophageal reflux disease. b. B. Erosions in the body of antrum of the stomach. c. C. Grossly normal duodenum. 2. Colonoscopy showing: a. A. Diffusely excoriated hemorrhoids (likely bleeding source). b. B. Two small polyps at 20 cm at 30 cm from dentate line. OPERATIVE PROCEDURES: 1. Esophagogastroduodenoscopy with: a. A. Biopsies of duodenum to rule out celiac disease. b. B. Biopsies of antrum for CLOtest. c. C. Biopsies esophagogastric junction for histologic evaluation. 2. Flexible colonoscopy with polypectomy x2. ANESTHESIA: IV sedation. INDICATION FOR PROCEDURE: The patient presents with the above recent complaints and findings. She recently was started per Gastroenterology on Protonix 40 mg a day and she is feeling somewhat better in terms of the upper GI symptoms. The plan is to proceed with an upper and lower endoscopy with biopsies and/or polypectomy as indicated. We will plan to proceed with random duodenal biopsies to rule out celiac disease per the Gastroenterology request. Potential risks including bleeding and perforation were discussed, and the patient wishes to proceed. DETAILS OF PROCEDURE: The patient was taken to the operating room and placed in a left lateral decubitus position. IV sedation was administered, after which the upper GI endoscope was passed orally through the length of the esophagus into the stomach with retroflexion view of the fundus, thereafter through the pyloric channel into the junction of the third and fourth portions of the duodenum. Findings included normal hypopharynx, larynx, upper esophageal sphincter, esophageal body. At the EG junction, a small hiatal hernia was present and there was a moderately active reflux disease in terms of the distal mucosal being friable and somewhat edematous. There was minimal elevation of the squamous columnar mucosal line. Within the body and antrum of the stomach, there were some scattered erosions covered with some old blood but no active bleeding. The pyloric channel and duodenum were grossly normal. At this point, multiple biopsies obtained from the duodenum sent for histological evaluation. Biopsies were then obtained from the antrum and sent for CLOtest for H pylori and multiple biopsies were obtained from the esophagogastric junction, sent for histologic evaluation as well. Minimal bleeding from the biopsy sites was seen and the upper endoscopy then completed. The initial digital rectal exam was performed and was unremarkable. Colonoscope was passed into the rectum with retroflexion revealing quite excoriated hemorrhoids diffusely. These did not appear to be amenable to banding in terms of the overall diffuseness and location. Apart from that, the patient was noted to have two small polyps; one 20 cm and one 30 cm from the dentate line. There were otherwise no areas of additional polyp formation or signs of neoplasia and no diverticulosis or areas of colitis. No blood or bleeding was seen during the exam. The prep was quite good. The polyps were then excised by means of cautery snare technique and sent for histologic evaluation. Minimal bleeding from the biopsy polypectomy sites was seen. The patient will be following up with Sulema Simms CNP, the Department of Gastroenterology [address], and with also regarding the endoscopies and constipation. I will write her to continue the Protonix 40 mg a day. Sherwin Paula MD /[id number]
== END 2020-07-16 09:50 | disposition home or self-care (01) ==
LOC: JP.SDS 06:36
PROVIDERS: ATTEND Surgery
DX: K63.5 Polyp of colon (principal); K59.09 Other constipation; K25.9 Gastric ulcer, unspecified as acute or chronic, without hemorrhage or perforation; K31.89 Other diseases of stomach and duodenum; K21.9 Gastro-esophageal reflux disease without esophagitis; K44.9 Diaphragmatic hernia without obstruction or gangrene; K64.9 Unspecified hemorrhoids; F17.200 Nicotine dependence, unspecified, uncomplicated
CPT/HCPCS: 43239; 45385; 87081; 88305; J2250; J2704; J3010; J3490; J7121

== ENCOUNTER 2020-08-22 06:57 | Day surgery (SDC) | payer OTHER ==
[2020-08-22] MEDS ORDERED: Bupivacaine 0.5% 50 ML MDV ONE (07:06)
[2020-08-22] MEDS ORDERED: Lidocaine 1% with EPINEPHrine 1:100,000 50 ML MDV ONE (07:06)
[2020-08-22] MEDS ORDERED: Rocuronium 50 MG/5 ML Vial ONE (07:19)
[2020-08-22] MEDS ORDERED: fentaNYL 250 MCG/5 ML SDV ONE (07:19)
[2020-08-22] MEDS ORDERED: Succinylcholine 200 MG/10 ML MDV ONE (07:19)
[2020-08-22] MEDS ORDERED: Glycopyrrolate 0.2 MG/ML 5 ML MDV ONE (07:19)
[2020-08-22] MEDS ORDERED: Ondansetron 4 MG/2 ML SDV ONE (07:19)
[2020-08-22] MEDS ORDERED: Propofol 200 MG/20 ML SDV ONE (07:19)
[2020-08-22] MEDS ORDERED: Neostigmine Methylsulfate 1 MG/ML 5 ML Syringe ONE (07:19)
[2020-08-22] MEDS ORDERED: Dexamethasone 4 MG/ML SDV ONE (07:19)
[2020-08-22] MEDS ORDERED: Lactated Ringers 1,000 ML ONE (07:21)
[2020-08-22] MEDS ORDERED: metroNIDAZOLE/Normal Saline 500 MG in Premix Bag 1 BAG IV ONE (07:40)
[2020-08-22] MEDS: Sodium Chloride 0.9% 1,000 ML IV SCH ×2 (07:48→10:24)
[2020-08-22] MEDS ORDERED: ceFAZolin 2 GM in Premix Bag 1 BAG IV ONE (08:00)
[2020-08-22] MEDS ORDERED: hydrOXYzine HCL 100 MG/2 ML SDV IM PRN ×2 (08:27→09:39)
[2020-08-22] MEDS ORDERED: Benzocaine/Cetylpyridinium/Menthol Lozenge MUCMEM PRN (08:27)
[2020-08-22] MEDS ORDERED: Acetaminophen/HYDROcodone 325-5 MG Tab PO PRN (08:27)
[2020-08-22] MEDS ORDERED: Zolpidem 5 MG Tab PO PRN (08:27)
[2020-08-22] MEDS ORDERED: Docusate Sodium 100 MG Cap PO PRN (08:27)
[2020-08-22] MEDS ORDERED: Ropivacaine 28 ML, dexAMETHasone 8 MG, EPINEPHrine 0.4 MG, Sodium Chloride 0.9% 49.6 ML NERVRT SCH ×4 (08:45)
[2020-08-22] MEDS ORDERED: fentaNYL 100 MCG/2 ML SDV ONE (08:58)
[2020-08-22] MEDS ORDERED: hydrOXYzine HCL 100 MG/2 ML SDV IM ONE (09:38)
[2020-08-22] MEDS ORDERED: fentaNYL 100 MCG/2 ML SDV IVPUSH ONE (09:38)
--- NOTE | 2020-08-22 11:04 | OR ---
DATE OF PROCEDURE: 08/22/2020 SURGEON: Henri Schmitt MD PROCEDURES: 1. Laparoscopic cholecystectomy. 2. Liver biopsy. COMPLICATIONS: None. MICA BUILDER: None. ANESTHESIA: General/local. PREOPERATIVE DIAGNOSIS: Cholecystitis. POSTOPERATIVE DIAGNOSIS: Cholecystitis. RISKS: Risks, benefits, alternatives, and limitations including, but not limited to infection, bleeding, cystic duct leaks, common bile duct injuries, seroma, hematoma, and other risks not listed here were explained to the patient and she wished to proceed. PROCEDURE IN DETAIL: The patient was placed in supine position. A supraumbilical curvilinear incision was made. A Veress needle was used to enter the abdomen without abnormality. A drop test was performed without abnormality. The abdomen was subsequently insufflated. An additional 10 and two 5 mm ports were entered under direct visualization. The liver itself had a charge lpn color with it and it was noted immediately to have some bile- stained ascites fluid. This was small in volume. However, this was concerning for some liver pathology. Therefore, a liver biopsy was performed using a Sedrick-Cut needle device. No abnormal bleeding was noted after this. Also, of note, the fluid was not related to enterotomy as the initial port was entered under direct visualization and there was no evidence of blood, injury, or any abnormality whatsoever during the entry point. Images were also taken to verify this. The gallbladder was retracted cephalad. The infundibulum was retracted inferolaterally. Using blunt dissection, a "clear view" of the gallbladder was obtained with a single pulsatile structure in the gallbladder and a single non-pulsatile structure in the gallbladder. The remaining 1/3rd of the gallbladder was removed off the gallbladder bed after the port and artery were clipped and transected. This was removed through the superior port without difficulty. The abdomen was re-insufflated. No abnormal bleeding was noted even with a drop in the pressure to 7 mmHg pressure. The abdomen was irrigated. The liver biopsy site was inspected. No abnormalities were noted. The air was removed. The wounds were closed with 3-0 Vicryl and 4-0 Vicryl in interrupted running fashion after irrigation and Dermabond were used. The patient tolerated the procedure well. Henri Schmitt MD /[id number]
--- NOTE | 2020-08-22 11:05 | OR ---
DATE OF PROCEDURE: 08/22/2020 SURGEON: Henri Schmitt MD PROCEDURES: 1. Transversus abdominis plane blocks bilaterally. 2. Rectus sheath blocks, bilaterally. COMPLICATIONS: None. ACCOUNT DIRECTOR: None. RISKS: Risks, benefits, alternatives, and limitations including, but not limited to infection, bleeding, injury to abdominal structures were explained to the patient who wished to proceed. PROCEDURE IN DETAIL: The patient was placed in supine position. The solution will be mixed and into 4 aliquots using a total of 80% of the allotted solution. The right transversus plane was identified first. 20% of the solution was injected under direct visual guidance and this was repeated with the right rectus, left rectus, and left transversus in a same manner, same fashion, same technique, in the same sequence using the same equipment. Dressings were applied. The patient tolerated the procedure well. Henri Schmitt MD /[id number]
== END 2020-08-22 13:10 | disposition home or self-care (01) ==
LOC: JP.SDS 06:57 → JP.MS 08:27 → JP.SDS 13:10
PROVIDERS: ATTEND Surgery
DX: K81.1 Chronic cholecystitis (principal); E83.19 Other disorders of iron metabolism; F17.210 Nicotine dependence, cigarettes, uncomplicated; R56.9 Unspecified convulsions; Z79.899 Other long term (current) drug therapy; Z88.1 Allergy status to other antibiotic agents; Z91.010 Allergy to peanuts; Z91.018 Allergy to other foods
CPT/HCPCS: 36415; 47379; 47562; 80053; 85027; 88304; 88307; 88313; A9270; J0171; J0330; J0690; J1100; J2405; J2704; J2710; J2795; J3010; J3410; J3490; J7030; J7120

== ENCOUNTER 2020-11-09 20:35 | Emergency (ER) | payer OTHER ==
[2020-11-09] MEDS ORDERED: Sodium Chloride 0.9% 1,000 ML IV SCH (21:00)
[2020-11-09] MEDS ORDERED: Ketorolac 30 MG/ML SDV IVPUSH ONE (21:00)
[2020-11-09] MEDS ORDERED: Ondansetron 4 MG/2 ML SDV IVPUSH ONE (21:00)
--- NOTE | 2020-11-09 21:28 | EDM.PDOC ---
ED HPI GENERAL MEDICAL PROBLEM - General Chief Complaint: General Stated Complaint: DIZZY,UNABLE TO WALK Time Seen by Provider: 11/09/20 20:39 Source of Information: Reports: Patient, Family ( Tomas) History Limitations: Reports: No Limitations - History of Present Illness INITIAL COMMENTS - FREE TEXT/NARRATIVE: Chief complaint: dizziness This is a 45 year old female present to ER with , concerns of dizziness, headache and light sensitivity since yesterday. Feels similar to previous migraine headaches. did eat today-hamburger for lunch and 2 brats for supper - which she vomited. reports its been a rough winter for her- 2 surgeries, Gallbladder and uterus. problems with absorption since gallbladder surgery. 30 pound wt loss. Worried her Dilantin or Dapakote levels are too high since wt. loss. reports hasn't had a seizure in a long, long time. denies exposure to Covid-19. not vaccinated for Covid-19 denies any other concerns., Onset: Gradual Onset Date: 11/08/20 Duration: Constant, Waxing/Waning Location: Reports: Generalized (dizziness) Quality: Reports: Same as Previous Episode Severity: Moderate Improves with: Reports: Rest Worsens with: Reports: Movement Associated Symptoms: Reports: Headaches, Nausea/Vomiting Headache Pain Score (Numeric/FACES): 3 - Related Data Allergies Allergy/AdvReac Type Severity Reaction Status Date / Time peanut Allergy Severe Rash Verified 11/09/20 20:49 adhesive Allergy Intermediate Rash Verified 11/09/20 20:49 amoxicillin Allergy Intermediate Rash Verified 11/09/20 20:49 onions Allergy Hives Uncoded 11/09/20 20:49 Home Meds: Home Meds Divalproex Sodium [Depakote] 1,000 mg PO BID 09/16/17 [History] Phenytoin Sodium Extended [Dilantin] 300 mg PO BID 09/16/17 [History] Albuterol Sulfate [Proair Respiclick] 2 puff IH Q4H PRN 02/09/19 [History] Ergocalciferol (Vitamin D2) [Vitamin D2] 2,000 units PO DAILY 08/20/20 [History] L.acidoph,Paracasei, B.lactis [Probiotic] 1 each PO DAILY 08/20/20 [History] Pantoprazole Sodium [Protonix] 40 mg PO BID 08/20/20 [History] Peppermint Oil [Pepogest] 0.2 ml PO DAILY 08/22/20 [History] Past Medical History HEENT History: Reports: Impaired Vision Respiratory History: Reports: Asthma, Bronchitis, Recurrent Gastrointestinal History: Reports: Chronic Constipation, Colon Polyp, GERD, GI Bleed, Hemorrhoids Genitourinary History: Reports: None 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 Frozen section Neurological History: Reports: Brain Injury, Migraines, Seizure Psychiatric History: Reports: Anxiety, Depression Hematologic History: Reports: Folic Acid, Other (See Below) Other Hematologic History: vitamin D Oncologic (Cancer) History: Reports: Ovarian - Infectious Disease History Infectious Disease History: Reports: Chicken Pox - Past Surgical History HEENT Surgical History: Reports: Myringotomy w Tube(s) Respiratory Surgical History: Reports: None GI Surgical History: Reports: Colonoscopy, EGD Female Surgical History: Reports: D&C, Other (See Below) Other Female Surgeries/Procedures: IUD Neurological Surgical History: Reports: None Dermatological Surgical History: Reports: None Social & Family History - Family History Family Medical History: No Pertinent Family History Cardiac: Reports: OK GI: Reports: Other (See Below) Other GI Family History: Chrons Neurological: Reports: CVA, Other (See Below) Other Neurological Family History: MS, MF Immunologic: Reports: Other (See Below) Other Immunologic Family History: MS Oncologic: Reports: Other (See Below) Other Oncologic Family History: throat cancer - Tobacco Use Tobacco Use Status *Q: Current Every Day Tobacco User Years of Tobacco use: 30 Packs/Tins Daily: 1 - Caffeine Use Caffeine Use: Reports: None - Recreational Drug Use Recreational Drug Use: No - Living Situation & Occupation Living situation: Reports: (lives with in [place], [place].) ED ROS GENERAL - Review of Systems Review Of Systems: See Below Constitutional: Reports: Malaise, Weight Loss (30 pounds since 2020) HEENT: Reports: Vertigo, Other (eyes light sensitive) Respiratory: Reports: No Symptoms Cardiovascular: Reports: No Symptoms Endocrine: Reports: No Symptoms GI/Abdominal: Reports: Diarrhea, Nausea, Vomiting : Reports: No Symptoms Musculoskeletal: Reports: No Symptoms Skin: Reports: No Symptoms Neurological: Reports: Dizziness, Headache Psychiatric: Reports: No Symptoms Hematologic/Lymphatic: Reports: No Symptoms Immunologic: Reports: No Symptoms ED EXAM, GENERAL - Physical Exam Exam: See Below Exam Limited By: No Limitations General Appearance: Alert, WD/WN, No Apparent Distress Eye Exam: Bilateral Eye: EOMI, Normal Inspection, PERRL Ears: Normal External Exam, Normal Canal, Hearing Grossly Normal, Normal TMs Ear Exam: Bilateral Ear: Auricle Normal, Canal Normal, TM normal Nose: Normal Inspection, Normal Mucosa, No Blood Throat/Mouth: Normal Inspection, Normal Lips, Normal Teeth, Normal Gums, Normal Oropharynx, Normal Voice, No Airway Compromise Head: Atraumatic, Normocephalic Neck: Normal Inspection, Supple, Non-Tender, Full Range of Motion Respiratory/Chest: No Respiratory Distress, Lungs Clear, Normal Breath Sounds, No Accessory Muscle Use, Chest Non-Tender Cardiovascular: Normal Peripheral Pulses, Regular Rate, Rhythm, No Edema, No Gallop, No JVD, No Murmur, No Rub GI/Abdominal: Normal Bowel Sounds, Soft, Non-Tender, No Organomegaly, No Distention, No Abnormal Bruit, No Mass (Female) Exam: Deferred Rectal (Female) Exam: Deferred Back Exam: Normal Inspection, Full Range of Motion, NT Extremities: Normal Inspection, Normal Range of Motion, Non-Tender, Normal Capillary Refill, No Pedal Edema Neurological: Alert, Oriented, CN II-XII Intact, Normal Cognition, Normal Gait, Normal Reflexes, No Motor/Sensory Deficits Psychiatric: Normal Affect, Normal Mood, Tearful Skin Exam: Warm, Dry, Intact, Normal Color, No Rash Lymphatic: No Adenopathy Course - Vital Signs Last Recorded V/S: Last Vital Signs Temp 97.6 F 11/09/20 20:45 Pulse 77 11/09/20 20:45 Resp 16 11/09/20 20:45 BP 127/83 11/09/20 20:45 Pulse Ox 100 11/09/20 20:45 - Orders/Labs/Meds Orders: Active Orders 24 hr Category Date Time Status UA W/MICROSCOPIC [URIN] Urgent Lab 11/09/20 22:22 Ordered Sodium Chloride 0.9% [Normal Saline] 1,000 ml Med 11/09/20 21:00 Active IV ASDIRECTED Medication Orders Sodium Chloride (Normal Saline) 1,000 mls @ 999 mls/hr IV ASDIRECTED ELISEO Last Admin: 11/09/20 21:15 Dose: 999 mls/hr Documented by: DALIA Labs: Laboratory Tests 11/09/20 11/09/20 11/09/20 Range/Units 21:05 21:10 21:10 WBC 12.0 H (4.5-11.0) K/uL RBC 4.27 (3.30-5.50) M/uL Hgb 13.5 (12.0-15.0) g/dL Hct 40.7 (36.0-48.0) % MCV 95 (80-98) fL MCH 32 H (27-31) pg MCHC 33 (32-36) % Plt Count 244 (150-400) K/uL Neut % (Auto) 53 (36-66) % Lymph % (Auto) 27 (24-44) % Catron % (Auto) 9 H (2-6) % Eos % (Auto) 10 H (2-4) % Baso % (Auto) 1 (0-1) % Sodium 143 (140-148) mmol/L Potassium 4.1 (3.6-5.2) mmol/L Chloride 105 (100-108) mmol/L Carbon Dioxide 27 (21-32) mmol/L Anion Gap 10.6 (5.0-14.0) mmol/L BUN 17 (7-18) mg/dL Creatinine 0.7 (0.6-1.0) mg/dL Est Cr Clr Drug Dosing 84.85 mL/min Estimated GFR (MDRD) > 60 (>60) Glucose 85 (74-106) mg/dL Calcium 8.4 L (8.5-10.1) mg/dL Phenytoin 29.0 H (10.0-20.0) ug/mL Valproic Acid 48.2 L (50.0-100.0) ug/mL Meds: Medications Generic Name Dose Route Start Last Admin Trade Name Freq PRN Reason Stop Dose Admin Sodium Chloride 1,000 mls @ 999 mls/hr 11/09/20 21:00 11/09/20 21:15 Normal Saline IV 999 mls/hr ASDIRECTED ELISEO Administration Discontinued Medications Generic Name Dose Route Start Last Admin Trade Name Freq PRN Reason Stop Dose Admin Ketorolac Tromethamine 30 mg 11/09/20 21:00 04/24/21 21:15 Ketorolac 30 Mg/Ml Sdv IVPUSH 11/09/20 21:01 30 mg ONETIME ONE Administration Ondansetron HCl 4 mg 11/09/20 21:00 11/09/20 21:15 Ondansetron 4 Mg/2 Ml Sdv IVPUSH 11/09/20 21:01 4 mg ONETIME ONE Administration - Re-Assessments/Exams Free Text/Narrative Re-Assessment/Exam: 11/09/20 21:37 discussed with and Mrs. Caldwell, will treat for migraine type headache and labs to rule out any other disease -IV Fluids NS 999 ml/hr -IV Zofran 4 mg -IV Toradol 30 mg labs- -cbc, bmp, Dilantin level, Dapakote level and Mrs. Caldwell agree with plan of care 11/09/20 22:36 labs- Dilantin 29 range 10-20 Valproic acit 48.2 range 50-100 CBC WBC 12.0 BMP normal range urine- unable to void Mrs. Caldwell reports headache is gone, feeling better, would like to go home advised to follow up with Primary Care on Wednesday discharge meds Toradol 10 mg every 6 hours as needed for pain #20 Zofran odt 4mg every 8 hours as needed for nausea #10 Meclizine 25 mg one every 6 to 8 hours as needed for nausea verbalized understanding of discharge instructions. Departure - Departure Time of Disposition: 22:45 Disposition: Home, Self-Care 01 Condition: Good Clinical Impression: Elevated Dilantin level, Headache, classical migraine, Vertigo - Discharge Information *PRESCRIPTION DRUG MONITORING PROGRAM REVIEWED*: Not Applicable *COPY OF PRESCRIPTION DRUG MONITORING REPORT IN PATIENT NATHANIEL: Not Applicable Instructions: Recurrent Migraine Headache, [id number], Vertigo, [id number] Referrals: PCP,None [Primary Care Provider] - Forms: ED Department Discharge Care Plan Goals: Migraine headache Elevated Dilantin Vertigo -discussed medications -rest, push fluids -copy of labs given and reviewed for medical record discharge meds Toradol 10 mg every 6 hours as needed for pain #20 Zofran odt 4mg every 8 hours as needed for nausea #10 Meclizine 25 mg one every 6 to 8 hours as needed for nausea -advised to follow up with Primary Care on Wednesday -Return to ER for increased pain, fever, chills, nausea, vomiting, diarrhea or any concerns. Sepsis Event Note (ED) - Evaluation Sepsis Screening Result: No Definite Risk - Focused Exam Vital Signs: Vital Signs Temp Pulse Resp BP Pulse Ox 11/09/20 20:45 97.6 F 77 16 127/83 100 11/09/20 20:43 97.6 F 77 16 127/83 100 - Problem List Review Problem List Initiated/Reviewed/Updated: Yes - My Orders Last 24 Hours: My Active Orders 11/09/20 21:00 Sodium Chloride 0.9% [Normal Saline] 1,000 ml IV ASDIRECTED 11/09/20 22:22 UA W/MICROSCOPIC [URIN] Urgent - Assessment/Plan Last 24 Hours: My Active Orders 11/09/20 21:00 Sodium Chloride 0.9% [Normal Saline] 1,000 ml IV ASDIRECTED 11/09/20 22:22 UA W/MICROSCOPIC [URIN] Urgent Plan: Migraine headache Elevated Dilantin Vertigo -discussed medications -rest, push fluids -copy of labs given and reviewed for medical record discharge meds Toradol 10 mg every 6 hours as needed for pain #20 Zofran odt 4mg every 8 hours as needed for nausea #10 Meclizine 25 mg one every 6 to 8 hours as needed for nausea -advised to follow up with Primary Care on Wednesday -Return to ER for increased pain, fever, chills, nausea, vomiting, diarrhea or any concerns.
== END 2020-11-09 23:08 | disposition home or self-care (01) ==
LOC: JP.ED 20:35
DX: G43.109 Migraine with aura, not intractable, without status migrainosus (principal); R89.2 Abnormal level of other drugs, medicaments and biological substances in specimens from other organs, systems and tissues; R42 Dizziness and giddiness; Z72.0 Tobacco use; J45.909 Unspecified asthma, uncomplicated; K21.9 Gastro-esophageal reflux disease without esophagitis; Z88.0 Allergy status to penicillin; Z91.018 Allergy to other foods; Z91.010 Allergy to peanuts
CPT/HCPCS: 36415; 80048; 80164; 80185; 85025; 96374; 96375; 99284; J1885; J2405; J7030

== ENCOUNTER 2023-02-24 21:09 | Emergency (ER) | payer SELFPAY ==
[2023-02-24 21:52] LABS: BASOPHILS ABSOLUTE AUTO 0.08 K/uL (0.00-0.10); BASOPHILS PERCENT AUTO 0.5 % (0.1-1.3); EOSINOPHILS ABSOLUTE AUTO 1.06 K/uL (0.00-0.40); EOSINOPHILS PERCENT AUTO 6.7 % (0.0-5.4); HEMATOCRIT 39.6 % (34.3-46.0); HEMOGLOBIN 13.6 g/dL (11.2-15.5); IMMATURE GRAN ABSOLUTE AUTO 0.04 K/uL (0.00-0.23); IMMATURE GRAN PERCENT AUTO 0.3 % (0.0-0.7); LYMPHOCYTES ABSOLUTE AUTO 3.48 K/uL (0.8-3.3); MEAN CORPUSCULAR HEMOGLOBIN 31.8 pg (31.6-35.5); MEAN CORPUSCULAR HGB CONC 34.3 g/dL (31.6-35.5); MEAN CORPUSCULAR VOLUME 92.5 fL (81.4-99.0); MONOCYTES ABSOLUTE AUTO 1.74 K/uL (0.20-0.90); NEUTROPHILS PERCENT AUTO 59.5 % (40.0-78.1); PLATELET COUNT,PLT 279 K/uL (130-375); RED BLOOD CELL COUNT 4.28 M/uL (3.77-5.24); WHITE BLOOD CELL COUNT,WBC 15.8 K/uL (3.2-11.0)
[2023-02-24 22:06] LABS: CALCIUM 8.5 mg/dL (8.5-10.1); CREATININE 0.7 mg/dL (0.6-1.0); EST CRCL DRUG DOSING (CG) 83.18 mL/min; POTASSIUM,K 4.2 mmol/L (3.6-5.2)
[2023-02-24] MEDS ORDERED: Acetaminophen/oxyCODONE 325-5 MG Tab PO PRN (22:43)
[2023-02-24] MEDS ORDERED: Clindamycin HCl 150 MG Cap PO ONE (22:47)
== END 2023-02-24 23:05 | disposition home or self-care (01) ==
LOC: JP.ED 21:09
DX: K04.7 Periapical abscess without sinus (principal); F17.210 Nicotine dependence, cigarettes, uncomplicated; J45.909 Unspecified asthma, uncomplicated; Z86.16 Personal history of COVID-19; Z79.899 Other long term (current) drug therapy; Z91.010 Allergy to peanuts; Z91.048 Other nonmedicinal substance allergy status; Z88.1 Allergy status to other antibiotic agents; Z91.018 Allergy to other foods
CPT/HCPCS: 36415; 80048; 85025; 99283; A9270

== ENCOUNTER 2024-12-01 06:25 | Day surgery (SDC) | payer SELFPAY ==
[2024-12-01] MEDS: Lactated Ringers 1,000 ML IV SCH (06:44)
[2024-12-01] MEDS ORDERED: Propofol 200 MG/20 ML SDV ONE ×2 (07:08→07:40)
[2024-12-01] MEDS ORDERED: fentaNYL 100 MCG/2 ML SDV ONE (07:08)
[2024-12-01] MEDS ORDERED: Midazolam 1 MG/ML 2 ML SDV ONE (07:08)
== END 2024-12-01 08:55 | disposition home or self-care (01) ==
LOC: JP.SDS 06:25
PROVIDERS: ATTEND Family Medicine
DX: K63.5 Polyp of colon (principal); K52.9 Noninfective gastroenteritis and colitis, unspecified; K21.9 Gastro-esophageal reflux disease without esophagitis; Z88.0 Allergy status to penicillin; Z91.010 Allergy to peanuts; J45.909 Unspecified asthma, uncomplicated; F17.200 Nicotine dependence, unspecified, uncomplicated
CPT/HCPCS: 00811; 45380; J2250; J2704; J3010; J7120; 88305; 88342